=== PATIENT | male | born 1985 | race African-American/Black ===

== ENCOUNTER → 2017-10-25 | Outpatient (CLI) | payer BC ==
--- NOTE | 2017-10-26 08:11 | RAD ---
Exam: Right rib series History: 32-year-old male with right chest wall pain Comparison: None Findings: AP chest and 4 oblique views of the right ribs were obtained. Heart size and pulmonary vasculature are normal. Lungs are clear with no infiltrate, pleural effusion , or pneumothorax on either side. No acute rib fracture is identified on the right. IMPRESSION: No rib fracture is identified on the right. No acute cardiopulmonary abnormality. Reported By:
--- NOTE | 2017-10-26 08:13 | RAD ---
Exam: Right shoulder three views History: Right shoulder pain. Comparison: None Findings: Three views of the right shoulder demonstrate no evidence of acute bony abnormality or sign ificant degenerative change. IMPRESSION: Negative right shoulder radiographs. Reported By:
== END ==
LOC: RAD 15:09
PROVIDERS: ATTEND Psychiatry & Neurology Neurology
DX: R07.89 Other chest pain (principal); M25.511 Pain in right shoulder
CPT/HCPCS: 71111; 73030